=== PATIENT | female | born 1965 | race African-American/Black ===

== ENCOUNTER 2017-04-29 08:16 | Emergency (ER) | payer MEDICARE, MEDICAID ==
[~2017-04-29] VITALS: Ht 152.4 cm; Wt 63.5 kg
[~2017-04-29 08:16] MED LIST: ADVAIR 250-501 EACH INH; AZITHROMYCIN250 MG PO; BACTRIM-DS1 EA PO; CYCLOBENZAPRINE10 MG ORAL; GUAIFENESIN-CO118 M1 PO; IBUPROFEN400 MG PO; ROBITUSSIN DM T10 ML PO; SINGULAIR10 MG PO; VICODIN 5-5001 EACH PO
[2017-04-29 08:30] VITALS: BP 116/88
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
[2017-04-29] MEDS ORDERED: IBUPROFEN600 MG ORAL (09:26)
[2017-04-29] MEDS ORDERED: PREDNISONE5 M4 PO (09:26)
[2017-04-29 09:38] VITALS: BP 117/85
[2017-04-29 09:39] VITALS: BP 117/85
--- NOTE | 2017-04-29 10:41 | Diagnostic Imaging Report ---
Indication: pain Findings: 3 views of the right hand were obtained. Normal bony mineralization and alignment are demonstrated. No acute fractures, erosions, or periosteal reaction are seen. Soft tissues are unremarkable. Impression: No acute findings.
== END 2017-04-29 09:41 | disposition home or self-care (01) ==
LOC: EMR 09:18
DX: M79.641 Pain in right hand (principal); M06.9 Rheumatoid arthritis, unspecified; J45.909 Unspecified asthma, uncomplicated
CPT/HCPCS: 99283

== ENCOUNTER 2018-07-06 08:23 | Emergency (ER) | payer MEDICARE, MEDICAID ==
[~2018-07-06] VITALS: Ht 152.4 cm; Wt 63.5 kg
[~2018-07-06 08:23] MED LIST changes: +IBUPROFEN600 MG ORAL; +PREDNISONE5 M4 PO
--- NOTE | 2018-07-06 08:35 | NUR ---
ED Nurse Note: Pt came into the ER w/ complaints of congestion and back pain snice yesteray. According to pt, she has been taking zithromax for 6 days but has not gotten better. Pt states that she has 6/10 back pain. Non radiating. Pt is A + O x4. Ambulatory. Skin warm to touch.
[2018-07-06 08:37] VITALS: BP 114/75
--- NOTE | 2018-07-06 08:49 | NUR ---
ED Nurse Note: Called RT to notify of breathing tx order.
--- NOTE | 2018-07-06 08:55 | NUR ---
ED Nurse Note: Notified radiology of xray order.
--- NOTE | 2018-07-06 08:57 | NUR ---
ED Nurse Note: RT at the bedside.
--- NOTE | 2018-07-06 08:59 | NUR ---
ED Nurse Note: Xray at the bedside.
[2018-07-06] MEDS ORDERED: Ipratropium 0.02% Inh Soln 2.5ml UD HHN ONE (09:00)
[2018-07-06] MEDS ORDERED: Albuterol ud Inhalation HHN ONE (09:00)
[2018-07-06] MEDS ORDERED: PREDNISONE20 MG ORAL (09:35)
[2018-07-06] MEDS ORDERED: ALBUTEROL2.5 MG/3 M HHN (09:35)
[2018-07-06 09:38] VITALS: BP 113/78
--- NOTE | 2018-07-06 09:38 | NUR ---
ER DISCHARGE NOTE: Patient is cleared to be discharged per ERMD, pt is aox4, on room air, with stable vital signs. pt was given dc and prescription instructions, pt was able to verbalize understanding, pt id band removed without complications. pt is able to ambulate with steady gait. pt took all belongings.
--- NOTE | 2018-07-06 10:11 | Emergency Room Report ---
History of Present Illness General Chief Complaint: Flu Like Symptoms Source: Patient Present Illness HPI 52-year-old female presents ED for evaluation. Patient complaining of cough and chest wall pain and back pain. Started about one week ago. Cough is dry. Was seen by PMD and prescribed Z-Anuj states symptoms did not improve. Denies fevers or chills. States she has pain in her chest and back with coughing. Dull, 8 out of 10, nonradiating. Denies sick contacts or recent travel. History of asthma. Smoking. No other aggravating relieving factors. Denies any other associated symptoms Allergies: Coded Allergies: PROCHLORPERAZINE (Verified Allergy, Intermediate, 10/24/13) Patient History Past Medical History: asthma Past Surgical History: none Pertinent Family History: none Social History: Denies: smoking, alcohol use, drug use Now: No Immunizations: UTD Reviewed Nursing Documentation: PMH: Agreed; PSxH: Agreed Nursing Documentation-PMH Hx Asthma: Yes Review of Systems All Other Systems: negative except mentioned in HPI Physical Exam Vital Signs Date Time Temp Pulse Resp B/P (MAP) Pulse Ox O2 Delivery O2 Flow Rate FiO2 07/06/18 08:26 99.1 70 15 115/78 96 Room Air 07/06/18 08:37 98 Sp02 EP Interpretation: reviewed, normal General Appearance: no apparent distress, alert, GCS 15, non-toxic Head: normocephalic, atraumatic Eyes: bilateral eye normal inspection, bilateral eye PERRL ENT: hearing grossly normal, normal pharynx, no angioedema, normal voice Neck: full range of motion, supple/symm/no masses Respiratory: chest non-tender, decreased breath sounds, speaking full sentences , wheezing Cardiovascular #1: regular rate, rhythm, no edema Cardiovascular #2: 2+ carotid (R), 2+ carotid (L), 2+ radial (R), 2+ radial (L) , 2+ dorsalis pedis (R), 2+ dorsalis pedis (L) Gastrointestinal: normal bowel sounds, non tender, soft, non-distended, no guarding, no rebound Rectal: deferred Genitourinary: normal inspection, no CVA tenderness Musculoskeletal: back normal, gait/station normal, normal range of motion, non- tender Neurologic: alert, oriented x3, responsive, motor strength/tone normal, sensory intact, speech normal Psychiatric: judgement/insight normal, memory normal, mood/affect normal, no suicidal/homicidal ideation Reflexes: 3+ bicep (R), 3+ bicep (L), 3+ tricep (R), 3+ tricep (L), 3+ knee (R) , 3+ knee (L) Skin: normal color, no rash, warm/dry, well hydrated Lymphatic: no adenopathy Medical Decision Making Diagnostic Impression: Primary Impression: Bronchitis ER Course Hospital Course 52-year-old female presents to ED complaining of cough Differential diagnoses include: URI, bronchitis, asthma/COPD, pneumonia Clinical course Patient placed on stretcher. After initial history and physical I ordered chest x-ray, prednisone and nebulizer treatment. Chest x-ray shows no focal consolidation. Upon reassessment patient states cough and symptoms have improved. Findings consistent with bronchitis. Discussed findings with patient. We will prescribe short course of oral prednisone. After that she can resume her steroid inhaler. States she has her rescue inhaler. States that she has pain medications muscle relaxers as well. States she also has cough medication. Safe for discharge close outpatient follow-up. States she has a PMD Diagnosis - bronchitis Stable and discharged home with prescriptions for Rx prednisone, albuterol. Instructed to followup with PMD. Return to ED if symptoms recur or worsen Chest X-Ray Diagnostic Results Chest X-Ray Diagnostic Results : Chest X-Ray Ordered: Yes # of Views/Limited/Complete: 1 View Indication: Shortness of Breath Interpretation: no consolidation, no effusion, no pneumothorax, no acute cardiopulmonary disease Impression: No acute disease Electronically Signed by: Electronically signed by Aram Navarro MD Last Vital Signs Date Time Temp Pulse Resp B/P (MAP) Pulse Ox O2 Delivery O2 Flow Rate FiO2 07/06/18 09:38 98.9 75 18 113/78 97 Room Air 21 Status: improved Disposition: HOME, SELF-CARE Condition: Stable Scripts Prednisone* (PREDNISONE*) 20 Mg Tablet 40 MG ORAL DAILY for 5 Days, TAB Prov: Aram Navarro MD 07/06/18 Albuterol Sulfate* (ALBUTEROL SULFATE HHN*) 2.5 Mg/3 Ml Vial.neb 2.5 MG HHN Q4H PRN for Shortness of Breath, #25 VIAL Prov: Aram Navarro MD 07/06/18 Patient Instructions: Acute Bronchitis, [id number], Chronic Bronchitis Aram Navraro MD Jul 06, 2018 10:11
--- NOTE | 2018-07-06 11:07 | Diagnostic Imaging Report ---
Indication: Cough Technique: One view of the chest Comparison: 04/01/2012 Findings: Lungs and pleural spaces are clear. Heart size is normal. No significant interim change Impression: No acute process
== END 2018-07-06 09:39 | disposition home or self-care (01) ==
LOC: EMR 08:55
DX: J20.9 Acute bronchitis, unspecified (principal); R07.9 Chest pain, unspecified; M54.9 Dorsalgia, unspecified; Z88.8 Allergy status to other drugs, medicaments and biological substances
CPT/HCPCS: 71045; 94640; 94664; 99284; J7512

== ENCOUNTER 2018-07-29 16:34 | Emergency (ER) | payer MEDICARE, MEDICAID ==
[~2018-07-29] VITALS: Ht 165.1 cm; Wt 63.5 kg
[~2018-07-29 16:34] MED LIST changes: +ALBUTEROL2.5 MG/3 M HHN; +PREDNISONE20 MG ORAL
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
[2018-07-29] MEDS ORDERED: Isovue-300 100ml vial INJ PRN (16:45)
[2018-07-29] MEDS ORDERED: Morphine Sulfate 4mg/ml Inj (IV USE ONLY) IVP ONE ×2 (16:45→21:30)
[2018-07-29] MEDS ORDERED: DiphenhydrAMINE 50mg/ml Inj IVP ONE (16:45)
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
[2018-07-29 17:07] LABS: HEMATOCRIT 41.1 % (37.0-47.0); HEMOGLOBIN 14.4 G/DL (12.0-16.0); LYMPHOCYTES % (AUTO) 28.4 % (20.0-45.0); MEAN CORPUSCULAR VOLUME 85 FL (80-99); NEUTROPHILS % (AUTO) 63.4 % (45.0-75.0); PLATELET COUNT 196 K/UL (150-450); RED BLOOD COUNT 4.84 M/UL (4.20-5.40); WHITE BLOOD COUNT 10.3 K/UL (4.8-10.8)
[2018-07-29 17:08] LABS: BASOPHILS % (AUTO) 1.2 % (0.0-2.0); EOSINOPHILS % (AUTO) 1.4 % (0.0-3.0); MONOCYTES % (AUTO) 5.5 % (1.0-10.0)
--- NOTE | 2018-07-29 17:08 | NUR ---
ED Nurse Note:blood sent to labs and pain meds with IV fluids given
[2018-07-29 17:12] VITALS: BP 118/75
--- NOTE | 2018-07-29 17:22 | NUR ---
ED Nurse Note: Pt is down to CT for imaging.
[2018-07-29 17:23] LABS: ANION GAP 11 mmol/L (5-15); BLOOD UREA NITROGEN 12 mg/dL (7-18); CALCIUM 9.3 MG/DL (8.5-10.1); CARBON DIOXIDE 25 MMOL/L (21-32); CHLORIDE 104 MMOL/L (98-107); CREATININE 0.9 MG/DL (0.55-1.30); POTASSIUM 3.3 MMOL/L (3.5-5.1); SODIUM 140 MMOL/L (136-145)
[2018-07-29 17:27] LABS: ALANINE AMINOTRANSFERASE 41 U/L (12-78); ALBUMIN/GLOBULIN RATIO 1.1 (1.0-2.7); ALKALINE PHOSPHATASE 79 U/L (46-116); ASPARTATE AMINO TRANSFERASE 35 U/L (15-37); BILIRUBIN,TOTAL 0.4 MG/DL (0.2-1.0)
[2018-07-29] MEDS ORDERED: Ketorolac 30mg Inj IV ONE (17:45)
[2018-07-29 19:00] VITALS: BP 138/80
[2018-07-29 21:05] VITALS: BP 128/74
--- NOTE | 2018-07-29 22:08 | NUR ---
ED Nurse Note: TELEPHONE REPORT GIVEN TO WILMAR MARTINEZ FROM [facility] FOR CONTINUITY OF CARE.
[2018-07-29 22:55] VITALS: BP 117/69
[2018-07-29 23:33] VITALS: BP 122/85
--- NOTE | 2018-07-29 23:38 | NUR ---
ED Nurse Note: [address] AT [address]ED[address]IDE, PT IS PREPARING FOR TRASNFER TO [facility], PT IS AOX4 ON 3 L NASAL CANNULA. PT SHOWS NO IMMINENT SIGNS OF DISTRESS, VSS AT THE MOMENT, PT STATES PAIN WHEN PERFORMING ADLS BUT STATES PAIN IS ACCEPTABLE. ALL BELONGINGS HAVE BEEN SENT WITH PT.
--- NOTE | 2018-07-30 10:19 | Diagnostic Imaging Report ---
Indication: Abdominal and chest pain and trauma Technique: Continuous helical transaxial imaging of the chest abdomen pelvis obtained from the thoracic inlet to the pubic symphysis during intravenous contrast administration. Coronal 2-D reformats were also obtained. Study obtained in a Siemens sensation [address] Automatic Exposure Control was utilized. Total Dose length Product (DLP): 1228.[address] Dose Index Volume (CTDIvol): 18.33,11.36 mGy Comparison: None Findings: There are subtle foci of paramediastinal and pleural air on the left side. There are subtle nondisplaced fractures of the anterolateral left fifth, sixth and seventh ribs (series 5, images #31, #37, #40). The heart is unremarkable as visualized. Follow-up chest x-ray and/or CT recommended. There is dependent posterior basal atelectasis. There is no mediastinal fluid. There is no hematoma. Mild calcium noted within the aorta. Cholecystectomy noted. There is no free fluid identified. Solid organs appear normal and enhance homogeneously. There is no hydronephrosis. Bowel gas pattern is nonobstructive with no obvious evidence for bowel injury. Mild calcium within the aorta demonstrated. Osseous structures appear normal. No definite fracture seen. Streak artifact from a right total hip prosthesis noted. Normal appendix noted. IMPRESSION: Trace left pneumothorax and/or pneumomediastinum. Acute nondisplaced fractures of the left anterolateral fifth sixth and seventh ribs. Follow-up recommended. No evidence of acute intra-abdominal trauma. Incidental findings including mild atherosclerotic disease, status post cholecystectomy, status post right hip replacement. [facility] has communicated the preliminary results to the Emergency Department. There is some variance but not felt to be significant. The preliminary report does suggest the possibility of a pneumothorax. The rib fractures were not reported on the preliminary report. The CT scanner at [facility] is accredited by the [employer] and the scans are performed using dose optimization techniques as appropriate to a performed exam including Automatic Exposure control.
== END 2018-07-29 23:40 | disposition short-term general hospital (02) ==
LOC: EDBD 16:34 → EMR 20:07
DX: J93.9 Pneumothorax, unspecified (principal); S60.512A Abrasion of left hand, initial encounter; S22.42XA Multiple fractures of ribs, left side, initial encounter for closed fracture; V43.62XA Car passenger injured in collision with other type car in traffic accident, initial encounter; Y92.410 Unspecified street and highway as the place of occurrence of the external cause; Z90.49 Acquired absence of other specified parts of digestive tract
CPT/HCPCS: 36415; 71250; 74177; 80053; 83690; 85025; 96361; 96374; 96375; 96376; 99291; J1200; J1885; J2270; J2405; Q9967